=== PATIENT | male | born 1955 | race Caucasian/White ===

== ENCOUNTER 2017-08-24 08:13 | Inpatient (IN) | payer BC ==
[~2017-08-24] VITALS: Ht 177.8 cm; Wt 105.5 kg
[2017-08-24] MEDS ORDERED: normal saline 1000ml 1,000 ML IV ONE (08:30)
[2017-08-24] MEDS ORDERED: aspirin 81mg tab.chew PO ONE (08:30)
[2017-08-24 09:01] LABS: BASOPHILS % (AUTO) 0.7 % (0-1); EOSINOPHILS # (AUTO) 0.2 X10'3 (0-0.9); EOSINOPHILS % (AUTO) 4.3 % (0-6); HEMATOCRIT 22.3 % (42.0-52.0); HEMOGLOBIN 7.1 g/dl (14.0-17.9); LYMPHOCYTES # (AUTO) 1.1 X10'3 (1.1-4.8); LYMPHOCYTES % (AUTO) 21.8 % (21-51); MEAN CORPUSCULAR HEMOGLOBIN 22.3 PG (27.0-31.0); MEAN CORPUSCULAR VOLUME 69.7 FL (78-98); MEAN PLATELET VOLUME 6.4 FL (7.4-10.4); MONOCYTES # (AUTO) 0.4 X10'3 (0-0.9); MONOCYTES % (AUTO) 7.2 % (2-12); NEUTROPHILS # (AUTO) 3.4 X10'3 (1.8-7.7); PLATELET COUNT 360 X10'3 (140-440); RED BLOOD COUNT 3.19 X10'6 (4.70-6.10); RED CELL DISTRIBUTION WIDTH 18.5 % (11.5-14.5); WHITE BLOOD COUNT 5.2 X10'3 (4.5-11.0)
[2017-08-24 09:26] LABS: ALANINE AMINOTRANSFERASE 17 U/L (12-78); ALBUMIN 3.2 G/DL (3.4-5.0); ALBUMIN/GLOBULIN RATIO 0.9 (1.1-1.5); ALKALINE PHOSPHATASE 36 IU/L (46-116); ANION GAP 8 (8-16); ASPARTATE AMINO TRANSFERASE 10 U/L (10-37); BILIRUBIN,TOTAL 0.3 MG/DL (0.1-1.0); BLOOD UREA NITROGEN 16 MG/DL (7-18); BUN/CREATININE RATIO 14.8 (5.4-32.0); CALCIUM 8.4 MG/DL (8.5-10.1); CHLORIDE 108 MMOL/L (99-107); CREATININE 1.08 MG/DL (0.60-1.10); GLUCOSE 101 MG/DL (70-104); MAGNESIUM 2.3 MG/DL (1.5-2.4); SODIUM 143 MMOL/L (135-145); TOTAL CARBON DIOXIDE 26.7 MMOL/L (24-32); TOTAL PROTEIN 6.6 G/DL (6.4-8.2); eGFR 70 ML/MIN
[2017-08-24 09:40] LABS: ANISOCYTOSIS 2+; HYPOCHROMASIA 1+; MICROCYTOSIS 2+; PLATELET ESTIMATE NORMAL
[2017-08-24 09:42] LABS: ELLIPTOCYTES 1+; POLYCHROMASIA 1+; SCHISTOCYTES FEW; TEAR DROP CELLS 1+
[2017-08-24] MEDS ORDERED: mag hydrox/Alum hydrox/simeth 30ml oral suspension PO PRN (11:50)
[2017-08-24] MEDS ORDERED: ondansetron/PF 4mg/2ml inj IV PRN (11:50)
[2017-08-24] MEDS ORDERED: magnesium hydroxide 30ml (MOM) UD suspension PO PRN (11:50)
[2017-08-24 12:38] LABS: OCCULT BLOOD STOOL NEGATIVE (Neg)
[2017-08-24 15:00] VITALS: BP 120/78
[2017-08-24] MEDS ORDERED: BACL10TA PO (15:34)
[2017-08-24] MEDS ORDERED: FLEC150T2 PO (15:35)
[2017-08-24] MEDS ORDERED: NEBI2.5T3 PO (15:35)
[2017-08-24] MEDS ORDERED: DICL100G15 TOP (15:35)
[2017-08-24] MEDS ORDERED: FLEC100T PO (17:08)
[2017-08-24] MEDS ORDERED: ASPI-611 PO (17:08)
[2017-08-24 19:00] VITALS: BP 123/66
[2017-08-24 19:46] LABS: SPHEROCYTES FEW
[2017-08-24] MEDS ORDERED: temazepam 15mg capsule PO PRN (20:00)
[2017-08-24] MEDS ORDERED: diphenhydrAMINE 50 mg/ml inj IV ONE (20:00)
[2017-08-24] MEDS ORDERED: acetaminophen 325mg tablet PO PRN (20:00)
[2017-08-24] MEDS: baclofen 10mg tablet PO PRN (21:19)
[2017-08-24] MEDS: flecainide 50mg tablet PO SCH (21:21)
[2017-08-24] MEDS: acetaminophen 325mg tablet PO PRN (21:23)
[2017-08-24] MEDS ORDERED: furosemide 20 MG/2 ML vial IV ONE (22:00)
[2017-08-24 22:14] VITALS: BP 132/78
[2017-08-24 22:34] VITALS: BP 127/76
[2017-08-24 23:00] VITALS: BP 127/76
[2017-08-25] VITALS (15 sets, daily range): BP systolic 113–134; BP diastolic 72–87
[2017-08-25] MEDS ORDERED: flecainide 50mg tablet PO ONE (03:45)
[2017-08-25] MEDS: flecainide 50mg tablet PO SCH ×2 (03:52→20:05)
[2017-08-25 06:21] LABS: BASOPHILS % (AUTO) 0.3 % (0-1); EOSINOPHILS # (AUTO) 0.3 X10'3 (0-0.9); EOSINOPHILS % (AUTO) 5.7 % (0-6); HEMOGLOBIN 8.3 g/dl (14.0-17.9); LYMPHOCYTES # (AUTO) 1.6 X10'3 (1.1-4.8); LYMPHOCYTES % (AUTO) 26.8 % (21-51); MEAN CORPUSCULAR HEMOGLOBIN 23.6 PG (27.0-31.0); MEAN CORPUSCULAR HGB CONC 31.9 % (33.0-36.5); MEAN CORPUSCULAR VOLUME 74.2 FL (78-98); MONOCYTES # (AUTO) 0.4 X10'3 (0-0.9); MONOCYTES % (AUTO) 7.5 % (2-12); NEUTROPHILS # (AUTO) 3.5 X10'3 (1.8-7.7); NEUTROPHILS % (AUTO) 59.7 % (42-75); PLATELET COUNT 305 X10'3 (140-440); RED BLOOD COUNT 3.51 X10'6 (4.70-6.10); RED CELL DISTRIBUTION WIDTH 19.7 % (11.5-14.5); WHITE BLOOD COUNT 5.9 X10'3 (4.5-11.0)
[2017-08-25 06:53] LABS: ALANINE AMINOTRANSFERASE 16 U/L (12-78); ALBUMIN 3.2 G/DL (3.4-5.0); ALKALINE PHOSPHATASE 35 IU/L (46-116); ANION GAP 9 (8-16); ASPARTATE AMINO TRANSFERASE 11 U/L (10-37); BILIRUBIN,TOTAL 0.5 MG/DL (0.1-1.0); BLOOD UREA NITROGEN 17 MG/DL (7-18); BUN/CREATININE RATIO 15.2 (5.4-32.0); CALCIUM 8.4 MG/DL (8.5-10.1); CHLORIDE 108 MMOL/L (99-107); CREATININE 1.12 MG/DL (0.60-1.10); GLUCOSE 96 MG/DL (70-104); POTASSIUM 4.1 MMOL/L (3.5-5.1); SODIUM 144 MMOL/L (135-145); TOTAL PROTEIN 6.4 G/DL (6.4-8.2); eGFR 67 ML/MIN
[2017-08-25] MEDS ORDERED: LORazepam 1 MG tablet PO ONE (07:50)
[2017-08-25] MEDS: dextrose 5%-1/2 normal saline 1,000 ML IV SCH ×2 (08:30→17:50)
[2017-08-25] MEDS ORDERED: MIDAZolam 5mg/ml 2ml vial ONE (09:25)
[2017-08-25] MEDS ORDERED: fentaNYL/PF 50MCG/1 ML 2ML syringe ONE (09:25)
[2017-08-25] MEDS ORDERED: LIDOcaine Viscous 15ml cup ONE (09:25)
[2017-08-25] MEDS ORDERED: normal saline 1000ml 1,000 ML IV SCH (09:50)
[2017-08-25] MEDS ORDERED: MIDAZolam 5mg/ml 2ml vial IV PRN (09:50)
[2017-08-25] MEDS ORDERED: LIDOcaine Viscous 15ml cup PO ONE (09:50)
[2017-08-25] MEDS ORDERED: fentaNYL/PF 50MCG/1 ML 2ML syringe IV PRN (09:50)
[2017-08-25] MEDS ORDERED: simethicone 40mg/0.6ml oral drops 30ml MC ONE (09:50)
[2017-08-25] MEDS ORDERED: pneumococcal 23-VAL P-sac vacc 25 mcg/0.5ml vial IMVAC ONE (10:00)
[2017-08-25] MEDS: LORazepam 1 MG tablet PO PRN (18:55)
[2017-08-25] MEDS: acetaminophen 325mg tablet PO PRN (18:55)
[2017-08-25] MEDS ORDERED: zolpidem 5mg tablet PO PRN (20:15)
[2017-08-25] MEDS: baclofen 10mg tablet PO PRN (20:27)
[2017-08-25] MEDS: diatr meglu/diatrizoate 30ml oral sol.-(3 dose) bottle PO SCH (21:31)
[2017-08-26 03:00] VITALS: BP 120/80
[2017-08-26] MEDS: dextrose 5%-1/2 normal saline 1,000 ML IV SCH ×2 (03:31→13:50)
[2017-08-26 06:00] VITALS: BP 129/82
[2017-08-26] MEDS ORDERED: diatrozoate meglu/diatrozoate sod (37% iodine) 120ML oral solution PO ONE ×3 (07:00→10:05)
[2017-08-26] MEDS: diatr meglu/diatrizoate 30ml oral sol.-(3 dose) bottle PO SCH (07:55)
[2017-08-26] MEDS: flecainide 50mg tablet PO SCH (07:56)
[2017-08-26] MEDS: baclofen 10mg tablet PO PRN (08:17)
[2017-08-26] MEDS ORDERED: iohexol 300mg/ml 100ml inj. ONE (10:00)
[2017-08-26] MEDS ORDERED: ferrous sulfate 325mg tablet PO SCH (10:00)
[2017-08-26] MEDS: LORazepam 1 MG tablet PO PRN (10:12)
[2017-08-26 11:00] VITALS: BP 130/89
== END 2017-08-26 16:00 | disposition home or self-care (01) | DRG 391 ==
LOC: ER 08:15 → ED HOLD 11:48 → PCU 3S 12:52 → CMPBEDREQ 19:34
PROVIDERS: ADMIT Internal Medicine; ATTEND Internal Medicine
PROC: 30233N1 Transfusion of Nonautologous Red Blood Cells into Peripheral Vein, Percutaneous Approach (ICD-10-PCS; principal; 2017-08-24)
PROC: 0DB48ZX Excision of Esophagogastric Junction, Via Natural or Artificial Opening Endoscopic, Diagnostic (ICD-10-PCS; 2017-08-25)
PROC: 0D748ZZ Dilation of Esophagogastric Junction, Via Natural or Artificial Opening Endoscopic (ICD-10-PCS; 2017-08-25)
PROC: BW251ZZ Computerized Tomography (CT Scan) of Chest, Abdomen and Pelvis using Low Osmolar Contrast (ICD-10-PCS; 2017-08-26)
DX: K22.2 Esophageal obstruction (principal); K25.4 Chronic or unspecified gastric ulcer with hemorrhage; D62 Acute posthemorrhagic anemia; I48.2 Chronic atrial fibrillation; R13.14 Dysphagia, pharyngoesophageal phase; E78.00 Pure hypercholesterolemia, unspecified; K21.9 Gastro-esophageal reflux disease without esophagitis; E61.1 Iron deficiency; I10 Essential (primary) hypertension; R63.4 Abnormal weight loss; Z68.20 Body mass index [BMI] 20.0-20.9, adult; Z88.0 Allergy status to penicillin; Z82.49 Family history of ischemic heart disease and other diseases of the circulatory system; Z82.0 Family history of epilepsy and other diseases of the nervous system
CPT/HCPCS: 36415; 36430; 43239; 71045; 71260; 74177; 80053; 82272; 83735; 83880; 84484; 85025; 86885; 86900; 86901; 86920; 92616; 93005; 96360; 99291; A4620; G0500; J1200; J1940; J2250; J3010; J7030; P9016; Q9963; Q9967

== ENCOUNTER 2019-05-21 10:15 | Emergency (ER) | payer BC ==
[~2019-05-21] VITALS: Ht 177.8 cm; Wt 81.8 kg
[~2019-05-21 10:15] MED LIST: BACL10TA PO; FLEC100T PO
[2019-05-21 10:49] LABS: BASOPHILS % (AUTO) 0.8 % (0-1); EOSINOPHILS # (AUTO) 0.2 X10'3 (0-0.9); EOSINOPHILS % (AUTO) 4.4 % (0-6); HEMATOCRIT 40.6 % (42.0-52.0); HEMOGLOBIN 14.1 g/dl (14.0-17.9); LYMPHOCYTES # (AUTO) 0.8 X10'3 (1.1-4.8); LYMPHOCYTES % (AUTO) 16.6 % (21-51); MEAN CORPUSCULAR HEMOGLOBIN 33.3 PG (27.0-31.0); MEAN CORPUSCULAR HGB CONC 34.8 g/dL (33.0-36.5); MEAN CORPUSCULAR VOLUME 95.7 FL (78-98); MEAN PLATELET VOLUME 6.7 FL (7.4-10.4); MONOCYTES # (AUTO) 0.4 X10'3 (0-0.9); MONOCYTES % (AUTO) 8.7 % (2-12); NEUTROPHILS # (AUTO) 3.4 X10'3 (1.8-7.7); NEUTROPHILS % (AUTO) 69.5 % (42-75); PLATELET COUNT 154 X10'3 (140-440); RED BLOOD COUNT 4.24 X10'6 (4.70-6.10); RED CELL DISTRIBUTION WIDTH 13.5 % (11.5-14.5); WHITE BLOOD COUNT 4.9 X10'3 (4.5-11.0)
[2019-05-21 11:00] LABS: PARTIAL THROMBOPLASTIN TIME 28 SECONDS (22-32)
[2019-05-21 11:09] LABS: ALANINE AMINOTRANSFERASE 19 U/L (12-78); ALBUMIN 3.8 G/DL (3.4-5.0); ALBUMIN/GLOBULIN RATIO 1.1 (1.1-1.5); ALKALINE PHOSPHATASE 61 IU/L (46-116); ANION GAP 8 (8-16); ASPARTATE AMINO TRANSFERASE 17 U/L (10-37); BILIRUBIN,TOTAL 0.7 MG/DL (0.1-1.0); BLOOD UREA NITROGEN 18 MG/DL (7-18); BUN/CREATININE RATIO 15.1 (5.4-32.0); CALCIUM 9.1 MG/DL (8.5-10.1); CHLORIDE 109 MMOL/L (99-107); CREATININE 1.19 MG/DL (0.60-1.10); GLUCOSE 84 MG/DL (70-104); POTASSIUM 4.3 MMOL/L (3.5-5.1); SODIUM 144 MMOL/L (135-145); TOTAL CARBON DIOXIDE 26.8 MMOL/L (24-32); TOTAL PROTEIN 7.3 G/DL (6.4-8.2); eGFR 62 ML/MIN
--- NOTE | 2019-05-21 11:18 | NUR ---
pt was up to use the restroom, no changes. awaiting
[2019-05-21] MEDS ORDERED: normal saline 1000ML IV soln IVB ONE (12:05)
[2019-05-21 12:58] VITALS: BP 106/74
== END 2019-05-21 13:01 | disposition home or self-care (01) ==
LOC: ER 10:15
DX: I48.0 Paroxysmal atrial fibrillation (principal); R42 Dizziness and giddiness; E78.00 Pure hypercholesterolemia, unspecified; I10 Essential (primary) hypertension; F12.90 Cannabis use, unspecified, uncomplicated; Z98.890 Other specified postprocedural states; Z88.0 Allergy status to penicillin; Z87.891 Personal history of nicotine dependence
CPT/HCPCS: 36415; 71045; 80053; 84484; 85025; 85610; 85730; 93005; 96360; 99284; J7030